=== PATIENT | male | born 1935 | race African-American/Black ===

== ENCOUNTER 2016-07-30 12:07 | Emergency (ER) | payer OTHER ==
[~2016-07-30] VITALS: Ht 180.3 cm; Wt 90.0 kg
[2016-07-30] MEDS ORDERED: ONDANSETRON HCL 4MG/2ML VIAL IV STA (12:48)
[2016-07-30] MEDS ORDERED: SODIUM CHLORIDE 0.9% 1,000 ML IV ONE (12:48)
[2016-07-30 13:59] LABS: CLARITY URINE CLOUDY (CLEAR); GLUCOSE URINE NEGATIVE (NEGATIVE); KETONES URINE NEGATIVE (NEGATIVE); LEUKOCYTE ESTERASE URINE 1+ (NEGATIVE); NITRITE URINE NEGATIVE (NEGATIVE); OCCULT BLOOD URINE 3+ (NEGATIVE); PROTEIN URINE 4+ (NEGATIVE); SPECIFIC GRAVITY URINE 1.034 (1.005-1.030); UROBILINOGEN URINE 0.2 E.U./dL (0.2-1.0)
[2016-07-30 14:03] LABS: COLOR URINE BLOODY (YELLOW); RBC URINE TNTC /hpf (0-2)
[2016-07-30 14:07] LABS: WBC URINE TNTC /hpf (0-2)
[2016-07-30 14:08] LABS: SQUAMOUS EPITHELIAL CELL URINE NONE SEEN /lpf (RARE/1+)
[2016-07-30 14:09] LABS: BACTERIA URINE 3+
[2016-07-30 14:29] LABS: HEMATOCRIT. 28.2 % (42.0-52.0); HEMOGLOBIN 8.8 g/dL (14.0-18.0); HEMOGLOBIN. 8.8 g/dL (14.0-18.0); MEAN CORPUSCULAR HEMOGLOBIN 24.3 pg (28.0-32.0); MEAN CORPUSCULAR HGB CONC 31.3 g/dL (31.0-37.0); MEAN CORPUSCULAR VOLUME 77.8 fL (80.0-94.0); MEAN PLATELET VOLUME 8.7 fl (7.4-10.4); PLATELET 188 x1000/uL (130-400); RED BLOOD CELL COUNT 3.63 mill/uL (4.7-6.1); RED CELL DISTRIBUTION WIDTH 15.8 % (11.6-14.6); WHITE BLOOD COUNT 14.2 x1000/uL (4.5-11.0)
[2016-07-30 14:30] LABS: DIFFERENTIAL COMMENT 1
[2016-07-30 14:35] LABS: INR 1.2; PROTHROMBIN TIME 12.6 sec
[2016-07-30 14:40] LABS: ALANINE AMINOTRANSFERASE 18 IU/L (13-61); ALBUMIN 3.2 g/dL (3.4-5.0); ANION GAP 14; CALCIUM 8.4 mg/dL (8.5-10.1); CARBON DIOXIDE 29 mEq/L (21-32); CHLORIDE 110 mEq/L (98-107); INDEX HEMOLYSI 1 (1-3); INDEX ICTERIC 1 (1-4); INDEX LIPEMIC 1 (1-3); LIPASE 61 IU/L (73-393); UREA NITROGEN BLOOD 28 mg/dL (7-21)
[2016-07-30 14:42] LABS: eGFR > 60 mL/min (>60)
[2016-07-30 14:44] LABS: PLATELET ESTIMATE NORMAL
[2016-07-30 14:51] LABS: LACTIC ACID 3.1 mmol/L (0.4-2.0)
[2016-07-30] MEDS ORDERED: CEFTRIAXONE 2 G PREMIX 50 ML IV ONE (16:15)
[2016-07-30 19:12] VITALS: BP 114/78
== END 2016-07-30 21:48 | disposition short-term general hospital (02) ==
LOC: ER 12:26
DX: A41.9 Sepsis, unspecified organism (principal); I61.4 Nontraumatic intracerebral hemorrhage in cerebellum; K92.2 Gastrointestinal hemorrhage, unspecified; K92.1 Melena; R31.0 Gross hematuria; D64.9 Anemia, unspecified; E87.0 Hyperosmolality and hypernatremia; R74.0 Nonspecific elevation of levels of transaminase and lactic acid dehydrogenase [LDH]
CPT/HCPCS: 36415; 51702; 70450; 71010; 80053; 81001; 83605; 83690; 84484; 85018; 85025; 85610; 86850; 86900; 86901; 87040; 93005; 96361; 96365; 96375; 99285; J0696; J2405; J7030

== ENCOUNTER 2016-09-01 01:27 | Emergency (ER) | payer OTHER ==
[~2016-09-01] VITALS: Ht 182.9 cm; Wt 65.8 kg
[2016-09-01 02:25] LABS: BASOPHILS % 0.7 % (0.0-2.0); EOSINOPHILS % 5.1 % (0.0-5.0); HEMATOCRIT. 35.3 % (42.0-52.0); HEMOGLOBIN. 11.2 g/dL (14.0-18.0); LYMPHOCYTES % 11.1 % (20.0-50.0); MEAN CORPUSCULAR HEMOGLOBIN 26.7 pg (28.0-32.0); MEAN CORPUSCULAR HGB CONC 31.6 g/dL (31.0-37.0); MEAN CORPUSCULAR VOLUME 84.5 fL (80.0-94.0); MEAN PLATELET VOLUME 8.3 fl (7.4-10.4); MONOCYTES % 9.9 % (2.0-8.0); NEUTROPHILS % 73.2 % (40.0-76.0); PLATELET 200 x1000/uL (130-400); RED BLOOD CELL COUNT 4.18 mill/uL (4.7-6.1); RED CELL DISTRIBUTION WIDTH 16.3 % (11.6-14.6)
[2016-09-01 02:30] LABS: INR 1.1; PROTHROMBIN TIME 11.9 sec
[2016-09-01 02:38] LABS: ALANINE AMINOTRANSFERASE 12 IU/L (13-61); ALBUMIN 3.3 g/dL (3.4-5.0); CARBON DIOXIDE 34 mEq/L (21-32); INDEX HEMOLYSI 1 (1-3); INDEX ICTERIC 1 (1-4); INDEX LIPEMIC 1 (1-3); UREA NITROGEN BLOOD 23 mg/dL (7-21); eGFR > 60 mL/min (>60)
[2016-09-01 03:24] LABS: ANION GAP 10; CHLORIDE 108 mEq/L (98-107)
[2016-09-01] MEDS ORDERED: PANTOPRAZOLE SODIUM 40 MG/VIAL IV ONE (03:45)
[2016-09-01] MEDS ORDERED: SODIUM CHLORIDE 0.9% 1,000 ML IV ONE (03:45)
[2016-09-01 06:25] VITALS: BP 109/62
== END 2016-09-01 06:44 | disposition short-term general hospital (02) ==
LOC: ER 01:35
DX: K92.2 Gastrointestinal hemorrhage, unspecified (principal); E87.0 Hyperosmolality and hypernatremia; N28.9 Disorder of kidney and ureter, unspecified; R42 Dizziness and giddiness; F03.90 Unspecified dementia, unspecified severity, without behavioral disturbance, psychotic disturbance, mood disturbance, and anxiety
CPT/HCPCS: 36415; 71010; 80053; 85025; 85610; 86850; 86900; 86901; 93005; 96361; 96374; 99285; C9113; J7030